=== PATIENT | male | born 1995 | race Caucasian/White ===

== ENCOUNTER 2024-09-14 13:23 | Emergency (ER) | payer MEDICAID ==
[~2024-09-14] VITALS: Ht 167.6 cm; Wt 77.0 kg
[2024-09-14 13:27] VITALS: TEMP 36.7; O2SAT 98
[2024-09-14] MEDS ORDERED: BO1 TP (15:43)
[2024-09-14 16:23] VITALS: BP 124/80; PULSE 78; RESP 14; O2SAT 98
== END 2024-09-14 16:28 | disposition home or self-care (01) ==
LOC: ER 13:23
DX: S50.311A Abrasion of right elbow, initial encounter (principal); S09.90XA Unspecified injury of head, initial encounter; Y08.89XA Assault by other specified means, initial encounter; Y93.89 Activity, other specified; Y92.89 Other specified places as the place of occurrence of the external cause; Y99.8 Other external cause status
CPT/HCPCS: 73070; 70450; 99284; Z7610